=== PATIENT | female | born 1950 | race Caucasian/White ===

== ENCOUNTER → 2021-10-14 | Outpatient (CLI) | payer OTHER | LOC: WCC 07:18 | DX: I87.2 Venous insufficiency (chronic) (peripheral) (principal); L97.822 Non-pressure chronic ulcer of other part of left lower leg with fat layer exposed; S81.801A Unspecified open wound, right lower leg, initial encounter; S81.802A Unspecified open wound, left lower leg, initial encounter; R60.0 Localized edema; M79.661 Pain in right lower leg; M79.662 Pain in left lower leg; I10 Essential (primary) hypertension; M32.9 Systemic lupus erythematosus, unspecified; Z88.2 Allergy status to sulfonamides | CPT/HCPCS: 87070; 87077; 87186; 87205 ==

== ENCOUNTER → 2021-10-20 | Outpatient (CLI) | payer OTHER | LOC: WCC 07:08 | DX: I87.2 Venous insufficiency (chronic) (peripheral) (principal); L97.825 Non-pressure chronic ulcer of other part of left lower leg with muscle involvement without evidence of necrosis; L97.815 Non-pressure chronic ulcer of other part of right lower leg with muscle involvement without evidence of necrosis; I10 Essential (primary) hypertension; M32.9 Systemic lupus erythematosus, unspecified; R60.0 Localized edema | CPT/HCPCS: G0463 ==